=== PATIENT | male | born 1975 | race Caucasian/White ===

== ENCOUNTER 2017-01-20 16:42 | Emergency (ER) | payer BC ==
--- NOTE | 2017-02-22 17:09 | ER ---
ADMIT: 01/20/2017 RM/LOC: ER [facility] MR#: [id number] [address] [id number] BRIDGETT JORDAN Fernando [address] [place] [address] Emergency Room Report SEX: M AGE: 41 : 1975 DATE: 01/20/2017 This 41-year-old, was lifting a toilet. He was bending, lifting, turned, sudden onset of severe back pain in lumbar, radiating down the left leg and left thigh. See T sheet for remainder of history and physical. The patient is diagnosed with acute back pain, strain. Given prescription for Sterling, Flexeril, Medrol Dosepak. Work restrictions. Instructed to follow up with Physical Therapy. He was given warning signs for distinct emergent medical treatment should they develop. Jacob Bell MD/ modl JOB #: [id number] CC: Jacob Bell MD, Attending Physician Jean Paul Griffin MD, Family Physician
== END 2017-01-20 17:45 | disposition home or self-care (01) ==
LOC: ER 16:42
DX: M54.5 Low back pain (principal); F17.210 Nicotine dependence, cigarettes, uncomplicated; Z88.5 Allergy status to narcotic agent